=== PATIENT | female | born 1940 | race Caucasian/White ===

== ENCOUNTER 2016-06-13 09:36 | Inpatient (IN) | payer MEDICARE, BC ==
[~2016-06-13] VITALS: Ht 160 cm; Wt 83.2 kg
[2016-06-13] MEDS ORDERED: COQ1100C PO (10:27)
[2016-06-13] MEDS ORDERED: CHOL5000 PO (10:27)
[2016-06-13] MEDS ORDERED: VITA500T4 PO (10:27)
[2016-06-13] MEDS ORDERED: BIOT50005 PO (10:27)
[2016-06-13] MEDS ORDERED: TURM500C PO (10:27)
[2016-06-13] MEDS ORDERED: GLUC100017 PO (10:27)
[2016-06-13] MEDS ORDERED: FOLI800T PO (10:27)
[2016-06-13] MEDS ORDERED: NEXI20CA PO (10:29)
--- NOTE | 2016-06-15 19:22 | MH ---
cc: DOLLY ALAVRADO MD DATE OF ADMISSION: 06/21/2016 ADMITTING DIAGNOSIS Severe osteoarthritis of the left hip, pain left hip. HISTORY The patient is a 75-year-old white female who has experienced pain of her left hip of at least two years duration. She had noted the gradual onset of her discomfort unrelated to injury or unusual activity. She had undergone previous evaluation in [place] where she was diagnosed as having an arthritic condition and conformed to conservative management thereafter which included use of antiinflammatory medication and conforming to an exercise regimen. With the passage of time, the patient became progressively more symptomatic with pain for which she underwent additional orthopedic evaluation in both [place] and [facility] where she was encouraged to consider operative intervention. The patient indicated her desire to return to the [place] for further disposition for which she was later seen by the undersigned physician in May of this year. At that time she reported ongoing pain about her left groin area that had been aggravated by extended weightbearing activity that limited the patient's mobility with regards to her daily routine. She had continued to utilize antiinflammatory medication in the form of Advil without significant benefit being noted. Her x-ray studies revealed severe degenerative changes with subtotal obliteration of the joint space and early deformation of the femoral head. Findings and treatment options were reviewed with the patient at that time. The pros and cons of further conservative management versus operative intervention involving total hip arthroplasty were outlined in detail. Emphasis was made regarding the fact that the decision to proceed with surgery would be left entirely to the patient's discretion. The patient advised the undersigned that the entire purpose of returning to the [facility] was with the intent to proceed with surgical treatment as recommended. In compliance with her wishes, she is currently being admitted in order that total hip replacement be accomplished. PAST MEDICAL HISTORY/HOSPITALIZATIONS/SURGERIES 1. Hemiarthroplasty of the left shoulder for a history of degenerative joint disease. 2. Tonsillectomy. 3. Bilateral cataract surgery with intraocular lens implants. 4. Bilateral reduction mammoplasty. MEDICAL ILLNESSES Elevated cholesterol although is currently being managed without any medication. CURRENT MEDICATIONS Various supplements including B12, D3, folic acid, Q10, biotin, tumeric, glucosamine, Advil and Nexium is taken on a p.r.n. basis for a history of hiatal hernia. ALLERGIES THE PATIENT DENIES ANY KNOWN DRUG ALLERGIES. REVIEW OF SYSTEMS She experiences occasional headache. No seizure or syncope. No sinus congestion or epistaxis. Auditory acuity intact. No tinnitus. No bleeding gums or dysphagia. No cough, shortness of breath, upper respiratory infection, pneumonia or tuberculosis. No angina or heart disease. Appetite good. Bowel movements regular. No hepatitis, gallbladder disease, ulcers or hemorrhoids. No urinary tract infection. No kidney stones. She has had a prior history of a left humerus fracture. No psychiatric illness. Her remaining review of systems is unremarkable and noncontributory. FAMILY HISTORY The patient has been 55 years. Her is 83 years of age and described as being in good health. She has two sons also described as being in a good health. Her family history is unremarkable for hypertension, tuberculosis, diabetes, carcinoma, heart, liver or kidney disease. SOCIAL HISTORY The patient completed a high school education. She is a housewife. She denies active use of tobacco. Ethanol consumption in the form of an occasional glass of wine. PHYSICAL EXAMINATION Height 5 feet 2 inches, weight 189 pounds. GENERAL: An alert, oriented and responsive 75-year-old Greek female who sits quietly upon the examination table with no apparent distress. HEAD, EARS, EYES, NOSE AND THROAT: Pupils are equally round and reactive to light. Extraocular movements full. Sclerae are clear. External nares clear. External auditory canals clear. Dental intact. Mucous membranes pink and moist. Pharynx clear. NECK: Supple. Active range of motion without significant pain. Carotid pulse palpable bilaterally. Trachea midline. Thyroid without enlargement. LUNGS: Clear to auscultation and percussion. No CVA tenderness. No discomfort throughout the dorsal lumbar spine. HEART: Regular rhythm. No murmur or gallop. ABDOMEN: Soft, nontender. Bowel sounds present. PELVIC: Deferred. EXTREMITIES: Left hip: No localizing tenderness to palpation. There is restricted mobility of the hip joint being most pronounced with internal rotation and abduction maneuvering and pain at the extreme of motion. No sensation of crepitation or instability. Straight-leg raising is negative at 80 degrees bilaterally. Bradley sign is positive on the left side. Distal sensory grossly intact. Antalgic gait. NEUROLOGIC: Cranial nerves II through XII grossly intact. IMPRESSION Severe osteoarthritis of the left hip, pain left hip. PLAN Left total hip arthroplasty. The nature of the planned surgical procedure, the potential complications and risks associated, the expectations of surgery and the consent form were thoroughly reviewed with the patient prior to her admission to the hospital. Apple has indicated her full understanding regarding all of the above and given consent to proceed with treatment as outlined. Cardiac evaluation and clearance for surgery completed per Dr. Jorge Kim. MD SHADY Garcia/BJSawyer /6:32 PM /6:51 PM
[2016-06-21] MEDS ORDERED: ceFAZolin 2 GM PREMIX 50 ML IV SCH (09:45)
[2016-06-21] MEDS ORDERED: INSULIN HUMAN REGULAR 1,000 UNITS/10 ML VIAL SQ PRN (09:45)
[2016-06-21] MEDS ORDERED: METOPROLOL TARTRATE 25 MG TAB PO PRN (09:45)
[2016-06-21] MEDS ORDERED: SODIUM CHLORID 0.9% 500 ML IV SCH (10:00)
[2016-06-21] MEDS ORDERED: LACTATED RINGER'S 1000 ML IV SCH (10:00)
[2016-06-21] MEDS ORDERED: DIPH1TAB36 PO (10:03)
[2016-06-21] MEDS ORDERED: ADVI200C5 PO (10:03)
[2016-06-21 10:09] VITALS: BP 134/73; PULSE 74; RESP 18; TEMP 98.1; O2SAT 96
[2016-06-21] MEDS: TRANEXAMIC ACID 1 GM PRIOR TO PROCEDURE IV SCH ×2 (11:00)
[2016-06-21] MEDS ORDERED: ONDANSETRON HCL 4 MG/2 ML VIAL IV PUSH ONE (12:00)
[2016-06-21] MEDS ORDERED: ePHEDrine/NS 25 MG/5 ML SYR IV ONE (12:00)
[2016-06-21] MEDS ORDERED: NEOSTIGMINE 3 MG/3 ML SYR IV ONE (12:00)
[2016-06-21] MEDS ORDERED: LACTATED RINGER'S 1000 ML INJ 1,000 ML IV ONE (12:00)
[2016-06-21] MEDS ORDERED: PROPOFOL 200 MG/20 ML AMP IV ONE (12:00)
[2016-06-21] MEDS ORDERED: ACETAMINOPHEN 1000 MG/100 ML VIAL IV ONE (12:12)
[2016-06-21] MEDS ORDERED: FAMOTIDINE 20 MG/2 ML VIAL ONE (12:12)
[2016-06-21] MEDS ORDERED: MIDAZOLAM HCL 2 MG/2 ML VIAL ONE (12:12)
[2016-06-21] MEDS ORDERED: fentaNYL CITRATE 250 MCG/5 ML AMP ONE (12:12)
[2016-06-21] MEDS ORDERED: DEXAMETHASONE SOD PHOS 4 MG/ML VIAL ONE (12:13)
[2016-06-21] MEDS ORDERED: TRANEXAMIC ACID INJ 1,000 MG/10 ML AMP IV ONE (12:47)
[2016-06-21] MEDS ORDERED: TRANEXAMIC ACID INJ 1,000 MG in SODIUM CHLORIDE 0.9% INJ 100 ML IV SCH (15:00)
[2016-06-21] MEDS ORDERED: MORPHINE SULFATE 30 MG/30 ML PCA IV SCH (15:00)
[2016-06-21] MEDS ORDERED: MAGNESIUM HYDROXIDE SUSP 30 ML CUP PO PRN (15:00)
[2016-06-21] MEDS ORDERED: Post-op Orders (for Pharmacy) MISC XX ONE (15:00)
[2016-06-21] MEDS ORDERED: ACETAMINOPHEN/HYDROcodone 325 MG/5 MG TAB PO PRN (15:00)
[2016-06-21] MEDS ORDERED: ONDANSETRON HCL 4 MG/2 ML VIAL IVP PRN (15:00)
[2016-06-21] MEDS ORDERED: BISACODYL 10 MG SUPP PR PRN (15:00)
[2016-06-21] MEDS ORDERED: diphenhydrAMINE HCL 25 MG CAP PO PRN (15:00)
[2016-06-21] MEDS ORDERED: MISCELLANEOUS PHARMACY INFORMATION XX ONE (15:00)
[2016-06-21] MEDS ORDERED: DOCUSATE SODIUM 100 MG CAP PO PRN (15:00)
[2016-06-21] MEDS ORDERED: NALOXONE HCL 0.4 MG/ML AMP IV PRN (15:00)
[2016-06-21] MEDS ORDERED: SODIUM CHLORIDE 0.9% FLUSH 5 ML FLUSH IVF PRN (15:00)
[2016-06-21] MEDS: TRANEXAMIC ACID 1 GM POST-OP IV SCH ×2 (15:30)
[2016-06-21] MEDS: DEXT 5%-NACL 0.45% 1000 ML INJ 1,000 ML IV SCH ×2 (15:30→22:20)
[2016-06-21] MEDS: POVIDONE IODINE 7.5% SCRUB 118 ML BOTTLE TOP SCH (15:45)
--- NOTE | 2016-06-21 16:02 | RADRPT ---
EXAM DATE/TIME: 06/21/2016 15:11 [facility] COMPARISON: No previous studies available for comparison. INDICATIONS : Post op left hip. MEDICAL HISTORY : None. SURGICAL HISTORY : None. ENCOUNTER: Initial ACUITY: 1 day PAIN SCORE: Non-responsive. LOCATION: Left hip FINDINGS: Patient is immediately status post left total hip arthroplasty. Single view obtained. I can see one s uperiorly directed screw fixating the acetabulum and its tip protrudes approximately 15 mm. No fractu re is demonstrated. CONCLUSION: Left total hip arthroplasty as above. Cruz Santos MD on June 21, 2016 at 15:58 Board Certified Radiologist. This report was verified electronically.
[2016-06-21] MEDS ORDERED: TETRACAINE 0.5% OPTH SOLN 4 ML BTL LEFT EYE ONE (18:30)
[2016-06-21] MEDS ORDERED: PANTOPRAZOLE SOD 20 MG DELAYED RELEASE TAB PO PRN (18:30)
[2016-06-21] MEDS ORDERED: PILL SPLITTER OTHER PRN (18:30)
[2016-06-21] MEDS ORDERED: BALANCED SALT SOLN OPHT IRRIG 15 ML BTL ONE (18:30)
[2016-06-21 18:47] VITALS: O2SAT 94
[2016-06-21 20:11] VITALS: BP 117/72; PULSE 96; RESP 17; TEMP 96.7; O2SAT 100
[2016-06-21] MEDS ORDERED: ZOLPIDEM TARTRATE 5 MG TAB PO PRN (21:00)
[2016-06-21] MEDS: SODIUM CHLORIDE 0.9% FLUSH 5 ML FLUSH IVF SCH (21:00)
[2016-06-21] MEDS: PCA - TOTAL MG MORPHINE DELIVERED PER SHIFT SCH (22:00)
[2016-06-21] MEDS: ACETAMINOPHEN 325 MG TAB PO PRN (22:39)
[2016-06-21] MEDS ORDERED: MENTHOL LOZENGE BUCCAL PRN (22:45)
[2016-06-22] VITALS (11 sets, daily range): BP systolic 84–122; BP diastolic 46–68; PULSE 70–95; RESP 16–20; TEMP 96–99.8; O2SAT 92–100
[2016-06-22 05:25] LABS: HEMATOCRIT 27.9 % (35.0-46.0)
[2016-06-22 05:28] LABS: REVIEW FLAG FINAL
[2016-06-22] MEDS: PCA - TOTAL MG MORPHINE DELIVERED PER SHIFT SCH ×3 (05:50→20:17)
[2016-06-22] MEDS ORDERED: ASPI325T PO (06:32)
[2016-06-22] MEDS ORDERED: HYDR-3516 PO (06:32)
--- NOTE | 2016-06-22 06:34 | HHI.FF ---
Face to Face Verification Diagnosis: (1) Degenerative joint disease (DJD) of hip Physical Therapy Gait training Hip: Total hip, Protocol: Left, Abduction pillow while in bed Left LE Weight Bearing: WB as tolerated Left LE Range of Motion: Active ROM Nursing Dressing Changes: Daily dressing change I have seen patient Apple Reyna on 06/22/16. My clinical findings support the need for the requested home health care services because: Limited ability to care for self High risk of falls I certify that my clinical findings support that this patient is homebound because: Post-op weakness Unsteady gait/balance Unsafe to leave home unassisted Lawrence Dorantes MD Jun 22, 2016 06:34
[2016-06-22] MEDS ORDERED: MISC-163 ×2 (06:38→06:44)
[2016-06-22] MEDS ORDERED: WALKER WHEELS/F1 MIS (06:38)
[2016-06-22] MEDS: DEXT 5%-NACL 0.45% 1000 ML INJ 1,000 ML IV SCH ×3 (06:58→22:58)
[2016-06-22] MEDS: POVIDONE IODINE 7.5% SCRUB 118 ML BOTTLE TOP SCH (07:57)
[2016-06-22] MEDS: SODIUM CHLORIDE 0.9% FLUSH 5 ML FLUSH IVF SCH ×2 (09:00→20:17)
[2016-06-22] MEDS: CHOLECALCIFEROL (VIT D3) 5000 UNIT CAP PO SCH (09:22)
[2016-06-22] MEDS: CYANOCOBALAMIN 1,000 MCG TAB PO SCH (09:22)
[2016-06-22] MEDS: TRANEXAMIC ACID 1 GM PRIOR TO PROCEDURE IV SCH ×2 (09:23)
[2016-06-22] MEDS: TRANEXAMIC ACID 1 GM POST-OP IV SCH ×2 (13:27)
--- NOTE | 2016-06-22 13:39 | MP ---
cc: WENDY LY III, M.D. DATE OF OPERATION June 21, 2016 PREOPERATIVE DIAGNOSIS Severe osteoarthritis of the left hip. Pain of the left hip. POSTOPERATIVE DIAGNOSIS Severe osteoarthritis of the left hip. Pain of the left hip. PROCEDURE Left total hip arthroplasty. SURGEON MD Jayna ANESTHESIA Endotracheal. INDICATIONS A 75-year-old white female who has experienced pain of her left hip of two years duration. She had noted the gradual onset of discomfort unrelated to injury or unusual activity. She had undergone previous evaluation in her [place] of [place] where she was diagnosed as having an arthritic condition and thereafter conformed to conservative management which included use of anti-inflammatory medication and an exercise regimen. With the passage of time she became progressively more symptomatic with pain for which she underwent additional orthopedic evaluation in both [place] and [facility] where she was encouraged to consider operative intervention. She indicated her desire to return to the [place] for further disposition for which she was later seen by the undersigned physician in May of this year. At that time she reported ongoing pain about her left groin area that had been aggravated by extended weightbearing activity and limited her mobility with regards to her daily routine. She continued to utilize anti-inflammatory medication in the form of Advil without significant benefit noted. Her x-ray studies revealed severe degenerative changes with subtotal obliteration of the joint space and early deformation of the femoral head. Findings and treatment options were reviewed with the patient at that time. The pros and cons of continuing with conservative management versus operative intervention involving total hip arthroplasty were outlined in detail. Emphasis was made regarding the fact that the decision to proceed with surgery would be left entirely to the patient's discretion. The patient reported that her intent of returning to the [place] was with the plan to proceed with surgical treatment as had previously been recommended. In compliance with her wishes, she is currently being admitted in order that total hip replacement be accomplished. FORMAT Following induction of satisfactory general anesthesia by endotracheal intubation as completed per the Department of Anesthesia, the patient was positioned upon the operating table in a right lateral decubitus fashion. The left hip and lower extremity proper were isolated with a U drape thereafter being prepped with Betadine solution and draped into a sterile field in the routine manner. Prior to initiation of the actual procedure the standard time-out protocol was completed. All parameters were appropriately addressed and confirmed by operating room personnel. A standard posterolateral approach to the hip was initiated through a sharp skin incision and developed through underlying subcutaneous tissue with hemostasis maintained by electrocautery. By deepening dissection the fascia overlying the gluteus musculature was exposed and thereafter sharply incised to the limits of the incision. The underlying gluteus fibers were divided with the Bovie on cutting current. Progressive dissection facilitated exposure of the short external rotator structures. The piriformis tendon was utilized as an anatomical landmark and division of these structures was completed in a superior to inferior orientation and reflected medially exposing the posterior capsule. The sciatic nerve was protected. An L-shaped capsulotomy was accomplished through which a posterior dislocation of the femoral head was completed. Examination revealed severe degenerative changes with significant erosion of articular cartilage, hypertrophic bony reaction and deformation of the femoral head. The femoral template was positioned for alignment orientation. The neck was scored and thereafter divided with power saw, the amputated segment being passed to the back table as surgical specimen. Attention was initially directed to the proximal femur. Cancellus bone was harvested. The tapered reamer was inserted for alignment orientation. Sequential rasping and broaching was accomplished from 7 through 8 mm with the calcar orlando being utilized at the 8-mm stage. The 8-mm stem was determined to be favorable. With the trial component removed, attention was redirected to the acetabulum. The labrum and reactive soft tissue were sharply excised. Progressive reaming was accomplished from 46 through 53-mm. The 54 trial shell was positioned and determined to be satisfactory. With trial components being removed, the wound was copiously irrigated with pulsating antibiotic solution, hemostasis being maintained by electrocautery. Thereafter a 54-mm RingLoc acetabular shell was firmly seated into the acetabulum in approximately 45 degrees inclination to the horizontal and slight anteversion. A single 25-mm 6.5 cancellous screw was inserted superiorly to augment fixation. The permanent high wall acetabular liner was affixed to the acetabular shell. The 8-mm trial femoral broach was repositioned and a trial reduction followed utilizing a 36-mm modular head with both -6 and -3 neck length adapters. The -3 sizing was determined to be the more favorable fit. The hip was flexed to 90 degrees and internally rotated to 45 degrees with stability maintained. An open dislocation completed, the trial femoral components being removed, the canal was thoroughly irrigated and dried and thereafter the size 8 Echo Bi-Metric standard femoral stem was firmly seated to which a 36-mm ceramic head with -3 mm neck length adapter attached, open reduction completed and repeat range of motion again noted stability as previously described. Final irrigation was accomplished with hemostasis maintained. The posterior capsule was repaired with 0 Vicryl suture. The piriformis tendon and short external rotators structures were reapproximated in a similar manner. Hemovac drain tubes were inserted through superior stab wounds. The fascia of the gluteus musculature was reapproximated with a running 0 Vicryl suture. The remaining portion of the wound was closed in layers in the routine manner, skin margins being reapproximated with a running subcuticular 3-0 Vicryl suture over which Steri-Strips were applied. Xeroform gauze and a bulky dry sterile dressing were placed. The patient was repositioned into a supine orientation where an abduction splint was attached. Anesthesia was discontinued and she was thereafter transferred to a hospital bed and returned to the recovery room in satisfactory condition having tolerated her operative procedure well. Estimated blood loss was approximately 300 cc as determined per Anesthesia. All implants were of the Biomet simplex printer installer. MD SHADY Garcia/SSB /2:52 PM /1:21 PM
[2016-06-22] MEDS: RIVAROXABAN 10 MG TAB PO SCH (13:59)
[2016-06-22] MEDS ORDERED: PANTOPRAZOLE SOD 40 MG DELAYED RELEASE TAB PO ONE (15:45)
--- NOTE | 2016-06-22 19:23 | PD.CONS ---
[facility] Requested By Primary Care Physician No Primary Care Physician Diagnoses: History of Present Illness Patient is a pleasant 75-year-old female with a history of osteoarthritis, hiatal hernia, hypoglycemic headaches who is currently postop day 1 left hip replacement for osteoarthritis. She reports that pain is controlled. She denies any nausea, vomiting. She denies any heartburn. Denies any chest pain or shortness of breath. She reports feeling well prior to the procedure. Discussed with nursing. Patient had been noted to have blood pressures as low as 84/46 today. She did have some lightheadedness, but this has improved. Review of Systems performed and negative except for HPI and past medical history. Past Family Social History Allergies: Coded Allergies: No Known Allergies (Verified , 06/21/16) Past Medical History Hiatal hernia. Patient takes Nexium as needed for this. Long history of headaches with hypoglycemia from not eating. Patient has a history of elevated cholesterol managed with diet. Osteoarthritis B12 deficiency Vitamin D deficiency Past Surgical History Hemiarthroplasty of the left shoulder Tonsillectomy Bilateral cataract surgery Bilateral breast reduction Reported Medications patient takes Nexium 20 mg daily as needed patient also takes many multivitamins. Active Ordered Medications Current Medications Medications (Trade) Dose Ordered Sig/Nevin Route Start Time Stop Time Status Last Admin Povidone Iodine 1 applic 1 applic ONCE TOP 06/21/16 09:45 06/24/16 09:44 06/21/16 15:45 Tranexamic Acid 1000 mg/Sodium Chloride 110 ml @ 220 mls/hr ONCE IV 06/21/16 14:00 06/22/16 20:00 06/21/16 15:30 (D5W-1/2 NS 1000 ml Inj) 1,000 ml @ 125 mls/hr Q8H IV 06/21/16 14:58 06/22/16 15:03 (NS Flush) 2 ml UNSCH PRN IVF 06/21/16 15:00 (NS Flush) 2 ml BID IVF 06/21/16 21:00 (Xarelto) 10 mg Q24H PO 06/22/16 14:00 06/22/16 13:59 ([place] 5-325 Mg) 1 tab Q4H PRN PO 06/21/16 15:00 ([place] 5-325 Mg) 2 tab Q4H PRN PO 06/21/16 15:00 (Tylenol) 650 mg Q6H PRN PO 06/21/16 15:00 06/21/16 22:39 (Zofran Inj) 4 mg Q6H PRN IVP 06/21/16 15:00 (Colace) 100 mg BID PRN PO 06/21/16 15:00 (Ambien) 5 mg HS PRN PO 06/21/16 21:00 (Dulcolax Supp) 10 mg DAILY PRN OR 06/21/16 15:00 (Milk Of Magnesia Liq) 30 ml DAILY PRN PO 06/21/16 15:00 (Narcan Inj) 0.4 mg UNSCH PRN IV 06/21/16 15:00 06/23/16 14:59 (Benadryl) 25 mg Q6H PRN PO 06/21/16 15:00 06/23/16 14:59 (Morphine 1 Mg/ ml SCIENTIFIC [employer]ORATORY SUPERVISOR) 30 mg UNSCH IV 06/21/16 15:00 06/23/16 14:59 06/21/16 17:30 SCIENTIFIC [employer]ORATORY SUPERVISOR Dosage Infused (Pha) 1 Q8HR .XX 06/21/16 22:00 06/23/16 21:59 06/22/16 13:18 (Vitamin D3) 5,000 units DAILY PO 06/22/16 09:00 06/22/16 09:22 (Vitamin B12) 500 mcg DAILY PO 06/22/16 09:00 06/22/16 09:22 (Pill Splitter) 1 ea UNSCH PRN OTHER 06/21/16 18:30 ([place] Guillermina) 1 lozenge Q2H PRN BUCCAL 06/21/16 22:45 06/21/16 23:16 (Protonix) 40 mg DAILY PO 06/23/16 09:00 Family History Parents from old age. Has 2 sons in good health. Social History Nonsmoker. Patient drinks a glass of wine occasionally. Denies any illicit drugs. Physical Exam Vital Signs Vital Signs Date Time Temp Pulse Resp B/P Pulse Ox O2 Delivery O2 Flow Rate FiO2 06/22/16 13:18 18 06/22/16 12:04 97.4 70 16 122/50 96 06/22/16 11:18 107/48 06/22/16 11:10 84/46 06/22/16 10:15 105/52 06/22/16 10:02 94 21 06/22/16 08:10 96.6 84 18 97 06/22/16 04:11 96.4 88 19 106/68 95 06/22/16 00:15 96.0 95 20 112/67 100 06/21/16 20:11 96.7 96 17 117/72 100 Physical Exam GENERAL: patient lying in bed. Appears comfortable. Alert and oriented 3. SKIN: Warm and dry. HEAD: Normocephalic. EYES: No scleral icterus. No injection or drainage. NECK: Supple, trachea midline. No JVD or lymphadenopathy. CARDIOVASCULAR: Regular rate and rhythm without murmurs, gallops, or rubs. RESPIRATORY: Breath sounds equal bilaterally. No accessory muscle use. GASTROINTESTINAL: Abdomen soft, non-tender, nondistended. MUSCULOSKELETAL: No cyanosis, or edema. patient able to wiggle toes.bilateral upper extremity strength equal and intact BACK: Nontender without obvious deformity. No CVA tenderness. Laboratory Laboratory Tests Test 06/22/16 04:56 Hemoglobin 9.3 Hematocrit 27.9 Result Diagram: 06/22/16 0456 Assessment and Plan Assessment and Plan //Postoperative left hip performed on 06/21 Postsurgical management as per surgical service Pain management as per surgical service Await return of bowel function //Hypotension -Likely secondary to opioids. Patient is opioid rosita. Avoid high doses of opioids. Continue to monitor blood pressure. 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 Chronic. -Patient will continue on D5 half-normal saline. Avoid fasting if possible in the hospital //GERD. Chronic. //History of hiatal hernia. Chronic. -We'll place on PPI while in the hospital. //B12 deficiency, vitamin D deficiency. We'll continue supplementation. //Prophylaxis. As per surgical service. Discussed Condition With patient, nurse. Gregorio Brennan MD Jun 22, 2016 19:23
[2016-06-22] MEDS: ACETAMINOPHEN 325 MG TAB PO PRN (20:17)
[2016-06-23] VITALS (9 sets, daily range): BP systolic 96–109; BP diastolic 52–68; PULSE 83–91; RESP 16–21; TEMP 96.4–100.1; O2SAT 92–95
[2016-06-23] MEDS: PCA - TOTAL MG MORPHINE DELIVERED PER SHIFT SCH ×3 (06:00→21:48)
[2016-06-23] MEDS: PANTOPRAZOLE SOD 40 MG DELAYED RELEASE TAB PO SCH (08:56)
[2016-06-23] MEDS: SODIUM CHLORIDE 0.9% FLUSH 5 ML FLUSH IVF SCH ×2 (08:56→20:12)
[2016-06-23] MEDS: CHOLECALCIFEROL (VIT D3) 5000 UNIT CAP PO SCH (08:56)
[2016-06-23] MEDS: CYANOCOBALAMIN 1,000 MCG TAB PO SCH (08:56)
[2016-06-23] MEDS: POVIDONE IODINE 7.5% SCRUB 118 ML BOTTLE TOP SCH (08:57)
[2016-06-23] MEDS: DEXT 5%-NACL 0.45% 1000 ML INJ 1,000 ML IV SCH ×2 (08:57→14:10)
[2016-06-23] MEDS: ACETAMINOPHEN 325 MG TAB PO PRN ×3 (09:06→21:52)
[2016-06-23] MEDS ORDERED: DOCUSATE SODIUM 50 MG/SENNA 8.6 MG TAB PO ONE (09:30)
[2016-06-23] MEDS ORDERED: MAGNESIUM HYDROXIDE SUSP 30 ML CUP PO ONE (09:30)
[2016-06-23] MEDS: RIVAROXABAN 10 MG TAB PO SCH (14:09)
--- NOTE | 2016-06-23 22:53 | HHI.PR ---
Subjective Remarks pt says she is feeling alright. no cp or sob. poor appetite. Objective Vital Signs Date Time Temp Pulse Resp B/P Pulse Ox O2 Delivery O2 Flow Rate FiO2 06/23/16 21:48 18 06/23/16 18:11 95 21 06/23/16 16:00 99.5 85 16 107/68 95 06/23/16 12:42 17 06/23/16 12:00 100.1 86 16 104/64 92 06/23/16 10:14 98/62 06/23/16 09:44 96/58 06/23/16 08:00 21 06/23/16 08:00 100.0 91 17 109/65 93 06/23/16 06:00 19 06/23/16 04:13 96.4 85 21 101/52 95 06/23/16 00:09 96.8 89 20 103/56 92 I/O 06/22/16 06/22/16 06/22/16 06/23/16 06/23/16 06/23/16 07:00 15:00 23:00 07:00 15:00 23:00 Intake Total 647 ml 1369 ml 240 ml 240 ml 2151 ml Output Total 10 ml 40 ml 25 ml 700 ml Balance 637 ml 1329 ml 215 ml 240 ml 1451 ml Intake Oral 240 ml 860 ml 240 ml 240 ml 720 ml IV Total 407 ml 509 ml 1431 ml Output Urine Total 700 ml Drainage Total 10 ml 40 ml 25 ml # Voids 1 3 2 1 1 # Bowel Movements 0 0 0 0 Result Diagram: 06/22/16 0456 Objective Remarks GENERAL: sitting up in bed. aaox3. appears comfortable. SKIN: Warm and dry. HEAD: Normocephalic. EYES: No scleral icterus. No injection or drainage. NECK: Supple, trachea midline. No JVD. CARDIOVASCULAR: Regular rate and rhythm without murmurs, gallops, or rubs. RESPIRATORY: Breath sounds equal bilaterally. No accessory muscle use. GASTROINTESTINAL: Abdomen soft, non-tender, nondistended. MUSCULOSKELETAL: No cyanosis, or edema. BACK: Nontender without obvious deformity. No CVA tenderness. A/P Assessment and Plan //Postoperative left hip performed on 06/21 Postsurgical management as per surgical service Pain management as per surgical service Await return of bowel function. cathartic ordered //Low-grade fever. no sign of infection. monitor. //Hypotension -Likely secondary to opioids. Patient is opioid rosita. Avoid high doses of opioids. Continue to monitor blood pressure. 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 Chronic. -Patient will continue on D5 half-normal saline. Avoid fasting if possible in the hospital //GERD. Chronic. //History of hiatal hernia. Chronic. -cont on PPI while in the hospital. //B12 deficiency, vitamin D deficiency. continue supplementation. //Prophylaxis. As per surgical service. Discharge Planning per surgical service. Gregorio Brennan MD Jun 23, 2016 22:53
[2016-06-24] VITALS (7 sets, daily range): BP systolic 93–115; BP diastolic 51–69; PULSE 73–85; RESP 18–19; TEMP 98–99.9; O2SAT 94–99
[2016-06-24 05:37] LABS: AUTOMATED NEUTROPHIL # 3.8 TH/MM3 (1.8-7.7); BASOPHIL % 0.4 % (0.0-2.0); EOSINOPHIL # 0.1 TH/MM3 (0-0.4); EOSINOPHIL % 1.2 % (0.0-4.0); HEMO FLAGS DIFF FINAL; LYMPH % 27.8 % (9.0-44.0); LYMPHOCYTE # 1.9 TH/MM3 (1.0-4.8); MEAN CELL VOLUME 91.8 FL (80.0-100.0); MEAN CORPUSCULAR HGB CONC 34.9 % (32.0-36.0); MONO % 14.3 % (0.0-8.0); NEUT % 56.3 % (16.0-70.0); PLATELET COUNT 264 TH/MM3 (150-450); RED CELL DISTRIBUTION WIDTH 14.7 % (11.6-17.2); WHITE BLOOD COUNT 6.8 TH/MM3 (4.0-11.0)
[2016-06-24 05:51] LABS: BICARBONATE 29.9 MEQ/L (21.0-32.0); POTASSIUM 3.9 MEQ/L (3.5-5.1)
[2016-06-24] MEDS: ACETAMINOPHEN/HYDROcodone 325 MG/5 MG TAB PO PRN (09:30)
[2016-06-24] MEDS: PANTOPRAZOLE SOD 40 MG DELAYED RELEASE TAB PO SCH (09:31)
[2016-06-24] MEDS: CHOLECALCIFEROL (VIT D3) 5000 UNIT CAP PO SCH (09:31)
[2016-06-24] MEDS: CYANOCOBALAMIN 1,000 MCG TAB PO SCH (09:31)
[2016-06-24] MEDS: SODIUM CHLORIDE 0.9% FLUSH 5 ML FLUSH IVF SCH ×2 (09:32→20:31)
--- NOTE | 2016-06-24 10:23 | HHI.PR ---
Subjective Remarks Patient seen and examined this am. No overnight events. No BM since Sun, states milk of mag doesnt work for her and is requesting 2 ducolax suppositories. She is afebrile and vitals are stable. She is denying CP or difficulty breathing. (Marie Zapata MD R3) Objective Vital Signs Date Time Temp Pulse Resp B/P Pulse Ox O2 Delivery O2 Flow Rate FiO2 06/24/16 10:06 95 21 06/24/16 08:00 99.1 76 18 102/58 94 06/24/16 04:00 98.0 73 18 102/60 99 06/24/16 00:00 98.0 85 18 107/63 97 06/23/16 22:52 18 06/23/16 21:48 18 06/23/16 20:00 98.8 83 20 97/58 92 06/23/16 18:11 95 21 06/23/16 16:00 99.5 85 16 107/68 95 06/23/16 12:42 17 06/23/16 12:00 100.1 86 16 104/64 92 06/23/16 10:14 98/62 I/O 06/23/16 06/23/16 06/23/16 06/24/16 06/24/16 06/24/16 07:00 15:00 23:00 07:00 15:00 23:00 Intake Total 240 ml 2151 ml 200 ml Output Total 700 ml Balance 240 ml 1451 ml 200 ml Intake Oral 240 ml 720 ml 200 ml IV Total 1431 ml Output Urine Total 700 ml # Voids 1 1 1 2 # Bowel Movements 0 (Marie Zapata MD R3) Result Diagram: 06/24/16 0411 06/24/16 0411 Imaging Last Impressions Hip X-Ray 06/21/16 1458 Signed Impressions: Service Date/Time: Tuesday, June 21, 2016 15:11 - CONCLUSION: Left total hip arthroplasty as above. Cruz Santos MD Other Results GENERAL: appears comfortable SKIN: Warm and dry. HEAD: Normocephalic. EYES: No scleral icterus. No injection or drainage. NECK: Supple, trachea midline. No JVD or lymphadenopathy. CARDIOVASCULAR: Regular rate and rhythm without murmurs, gallops, or rubs. RESPIRATORY: Breath sounds equal bilaterally. No accessory muscle use. GASTROINTESTINAL: Abdomen soft, non-tender, nondistended. MUSCULOSKELETAL: No cyanosis, or edema. No calf tenderness. (Marie Zapata MD R3) A/P Problem List: (1) Degenerative joint disease (DJD) of hip ICD Code: M16.9 (2) Arthropathy of left hip ICD Code: M12.9 Assessment and Plan 75-year-old female with no significant medical history presented to the [place] ED with left hip pain found to have severe left osteoarthritis. She is status post left total hip arthroplasty. Hospitalist team consulted for medical management. 1 Postoperative left hip performed on 06/21 Postsurgical management as per surgical service Pain management as per surgical service Await return of bowel function. - PT recommends SNF, placement pending - ducolax suppos added - xarelto dvt prop 2. Hypotension -Likely secondary to opioids. Patient is opioid rosita. Avoid high doses of opioids. Continue to monitor blood pressure. 3. Headaches secondary to hypoglycemia from not eating. Chronic. -Patient will continue on D5 half-normal saline. Avoid fasting if possible in the hospital 4. GERD, with history of hiatal hernia. Chronic. -cont on PPI while in the hospital. 5. B12 deficiency, vitamin D deficiency. continue supplementation. Discharge Planning Patient cleared for D/C to SN[facility] pending BM. (Marie Zapata MD R3) Marie Zapata MD R3 Jun 24, 2016 10:23 Sivan Rocha MD Jun 24, 2016 15:50
[2016-06-24] MEDS ORDERED: BISACODYL EC 5 MG TABEC PO ONE (11:45)
[2016-06-24] MEDS ORDERED: BISACODYL 10 MG SUPP RECTAL ONE (12:00)
[2016-06-24] MEDS: RIVAROXABAN 10 MG TAB PO SCH (12:43)
[2016-06-24] MEDS: DEXT 5%-NACL 0.45% 1000 ML INJ 1,000 ML IV SCH (14:58)
[2016-06-24] MEDS ORDERED: XARE10TA PO (17:03)
[2016-06-24] MEDS ORDERED: SOD PHOSPHATE/SOD BIPHOSPHATE (ADULT) ENEMA 133ML PR ONE (18:00)
[2016-06-25 00:08] VITALS: BP 99/55; PULSE 89; RESP 18; TEMP 99.3; O2SAT 96
[2016-06-25 04:29] VITALS: BP 102/55; PULSE 85; RESP 18; TEMP 99.1; O2SAT 94
[2016-06-25 07:26] VITALS: BP 94/55; PULSE 83; RESP 17; TEMP 98; O2SAT 95
--- NOTE | 2016-06-25 07:59 | HHI.PR ---
Subjective Remarks Patient seen and examined this am. No overnight events. Multiple BM s. She is afebrile and vitals are stable. She is ready to go to rehab. Her pain is well controlled. States she walked around her room yesterday independently without issues. (Marie Zapata MD R3) Objective Vital Signs Date Time Temp Pulse Resp B/P Pulse Ox O2 Delivery O2 Flow Rate FiO2 06/25/16 04:29 99.1 85 18 102/55 94 06/25/16 00:08 99.3 89 18 99/55 96 06/24/16 20:05 99.9 84 19 109/52 95 06/24/16 16:00 99.0 84 18 115/69 98 06/24/16 12:00 98.1 74 18 93/51 99 06/24/16 10:06 95 21 06/24/16 08:00 99.1 76 18 102/58 94 I/O 06/24/16 06/24/16 06/24/16 06/25/16 06/25/16 06/25/16 07:00 15:00 23:00 07:00 15:00 23:00 Intake Total 960 ml 480 ml 240 ml Output Total 30 ml Balance 960 ml 480 ml 210 ml Intake Oral 960 ml 480 ml 240 ml Drainage Total 30 ml # Voids 2 2 1 0 # Bowel Movements 0 2 0 (Marie Zapata MD R3) Result Diagram: 06/24/16 0411 06/24/16 0411 Imaging Last Impressions Hip X-Ray 06/21/16 1458 Signed Impressions: Service Date/Time: Tuesday, June 21, 2016 15:11 - CONCLUSION: Left total hip arthroplasty as above. Cruz Santos MD Objective Remarks GENERAL: sitting comfortably in bed on her phone SKIN: Warm and dry. HEAD: Normocephalic. EYES: No scleral icterus. No injection or drainage. NECK: Supple, trachea midline. No JVD or lymphadenopathy. CARDIOVASCULAR: Regular rate and rhythm without murmurs, gallops, or rubs. RESPIRATORY: Breath sounds equal bilaterally. No accessory muscle use. GASTROINTESTINAL: Abdomen soft, non-tender, nondistended. MUSCULOSKELETAL: No cyanosis, or edema. No calf tenderness. (Marie Zapata MD R3) A/P Problem List: (1) Degenerative joint disease (DJD) of hip ICD Code: M16.9 (2) Arthropathy of left hip ICD Code: M12.9 Assessment and Plan 75-year-old female with no significant medical history presented to the [place] ED with left hip pain found to have severe left osteoarthritis. She is status post left total hip arthroplasty. Hospitalist team consulted for medical management. 1 Postoperative left hip performed on 06/21 Postsurgical management as per surgical service Pain management as per surgical service Bowel function returned - PT recommends SNF, placement pending - ducolax suppos added - xarelto dvt prop x 2 weeks 2. Hypotension -Likely secondary to opioids. Patient is opioid rosita. Avoid high doses of opioids. Continue to monitor blood pressure. 3. Headaches secondary to hypoglycemia from not eating. Chronic. 4. GERD, with history of hiatal hernia. Chronic. -cont on PPI while in the hospital. 5. B12 deficiency, vitamin D deficiency. continue supplementation. Discharge Planning Patient cleared for D/C to SNF. Orders written by primary. (Marie Zapata MD R3 ) Marie Zapata MD R3 Jun 25, 2016 07:59 Sivan Rocha MD Jun 26, 2016 14:37
[2016-06-25 08:20] VITALS: O2SAT 94
[2016-06-25] MEDS: CYANOCOBALAMIN 1,000 MCG TAB PO SCH (08:47)
[2016-06-25] MEDS: PANTOPRAZOLE SOD 40 MG DELAYED RELEASE TAB PO SCH (08:47)
[2016-06-25] MEDS: SODIUM CHLORIDE 0.9% FLUSH 5 ML FLUSH IVF SCH (08:48)
[2016-06-25] MEDS: CHOLECALCIFEROL (VIT D3) 5000 UNIT CAP PO SCH (08:48)
[2016-06-25] MEDS: ACETAMINOPHEN 325 MG TAB PO PRN (09:49)
[2016-06-25 11:41] VITALS: BP 115/61; PULSE 80; RESP 17; TEMP 97.5; O2SAT 96
[2016-06-25] MEDS: RIVAROXABAN 10 MG TAB PO SCH (13:53)
[2016-06-25] MEDS: ACETAMINOPHEN/HYDROcodone 325 MG/5 MG TAB PO PRN (13:53)
--- NOTE | 2016-06-30 06:02 | MD ---
cc: DOLLY DORANTES PEDRO ADMISSION DATE: 06/21/2016 DISCHARGE DATE: 06/25/2016 ADMISSION DIAGNOSIS Severe osteoarthritis of the left hip. Pain left hip. DISCHARGE DIAGNOSIS Severe osteoarthritis of the left hip. Pain left hip. HISTORY A 75-year-old white female with pain of her left hip of at least 2 years' duration. She had noted the gradual onset of her discomfort unrelated to injury or unusual activity. Previous evaluation had been [place] where she was diagnosed as having arthritic condition and thereafter conformed to conservative management which included the use of anti-inflammatory medication and an exercise regimen. With the passage of time she became progressively more symptomatic with pain and underwent additional orthopedic evaluation in both [place] and [facility] where she was encouraged to consider operative intervention. The patient indicated her desire to return to the [facility] for further disposition and later was seen by the undersigned physician in May of this year. At that time she reported ongoing pain about her left groin area that had been aggravated by extended weightbearing activity and limited her mobility throughout her daily routine. She had continued to utilize anti-inflammatory medication in the form of Advil without significant benefit being noted. Her x-ray studies revealed severe degenerative changes with subtotal obliteration of the joint space and early deformation of the femoral head. Findings and treatment options were reviewed with the patient at that time, the pros and cons of further conservative management versus operative intervention that would involve a total hip arthroplasty were outlined in detail. Emphasis made regarding the fact that the decision to proceed with surgery would be left entirely to the patient's discretion. The patient indicated that her whole purpose of having returned to the [facility] was with the intent to proceed with surgical intervention as discussed above and in compliance with her wishes she had currently been scheduled for admission in order that total hip replacement be completed. PHYSICAL EXAMINATION her physical examination at the time of admission revealed no localizing tenderness about her left hip. There was restricted mobility of the hip joint being most pronounced with internal rotation and abduction maneuvering and pain at the extreme of motion. No sensation of crepitation or instability. Straight-leg raising negative at 80 degrees bilaterally. Bradley's sign positive on the left side. Distal sensory grossly intact. Antalgic gait. HOSPITAL COURSE Prior to admission to the hospital the patient had undergone cardiac evaluation and clearance for surgery as completed by Dr. Jorge Kim. She was taken to the operating room on June 21, 2016, and on that date underwent a left total hip arthroplasty completed in an uncomplicated manner. The patient was noted to have tolerated her operative procedure well and her postoperative course was stable thereafter. She was progressively mobilized under the guidance of physical therapy, being permitted weightbearing to tolerance about the left lower extremity. Follow-up examination of her surgical wound noted to be intact, healing favorably, no evidence of infection. Medical followup per the hospitalist service, DVT prophylaxis initiated. [employer] consulted to assist with discharge planning. The patient had indicated her desire for temporary rehab placement. [employer] facilitated arrangements in this regard and pending medical clearance she was scheduled for transfer on the third postoperative day at which time she was noted to be making favorable progress with regards to her rehab program. FOLLOWUP She was scheduled to be seen in office followup in approximately four weeks. CONDITION ON DISCHARGE Her condition at the time of transfer was stable. Prognosis favorable DISCHARGE MEDICATIONS 1. Percocet 5 mg, #60. 2. Aspirin 325 mg one tablet twice daily for four weeks, #60. Dolly Dorantes MD NBS/SSB /11:09 AM /4:52 AM
== END 2016-06-25 14:05 | DRG 470 ==
LOC: HSDI 06-21 08:52 → N06A 06-21 18:10
PROVIDERS: ADMIT Orthopaedic Surgery; ATTEND Orthopaedic Surgery
PROC: 0SRB0JZ Replacement of Left Hip Joint with Synthetic Substitute, Open Approach (ICD-10-PCS; principal; 2016-06-21 12:28)
DX: M16.12 Unilateral primary osteoarthritis, left hip (principal); E53.8 Deficiency of other specified B group vitamins; E78.00 Pure hypercholesterolemia, unspecified; K21.9 Gastro-esophageal reflux disease without esophagitis; K44.9 Diaphragmatic hernia without obstruction or gangrene; E55.9 Vitamin D deficiency, unspecified; I95.2 Hypotension due to drugs; T40.2X5A Adverse effect of other opioids, initial encounter; Y92.239 Unspecified place in hospital as the place of occurrence of the external cause; E16.2 Hypoglycemia, unspecified
CPT/HCPCS: 73501; 80048; 85014; 85018; 85025; 86850; 86900; 86901; 88304; 88305; 88311; 94150; C1776; J0131; J0690; J1100; J2250; J2270; J2405; J2710; J3010; J7120

== ENCOUNTER → 2016-06-13 | Outpatient (CLI) | payer MEDICARE, BC ==
[~2016-06-13] MED LIST: ADVI200C5 PO; ASPI325T PO; ATOR20TA42 PO; BIOT50005 PO; CHOL5000 PO; COQ1100C PO; DIPH1TAB36 PO; FOLI800T PO; GLUC100017 PO; HYDR-3516 PO; MISC-163; NEXI20CA PO; TURM500C PO; VITA500T4 PO; WALKER WHEELS/F1 MIS; XARE10TA PO
[2016-06-13 10:17] LABS: AUTOMATED NEUTROPHIL # 2.7 TH/MM3 (1.8-7.7); BASOPHIL % 0.5 % (0.0-2.0); EOSINOPHIL # 0.1 TH/MM3 (0-0.4); EOSINOPHIL % 1.3 % (0.0-4.0); HEMATOCRIT 33.9 % (35.0-46.0); HEMO FLAGS DIFF FINAL; LYMPH % 35.1 % (9.0-44.0); LYMPHOCYTE # 1.8 TH/MM3 (1.0-4.8); MEAN CELL VOLUME 91.6 FL (80.0-100.0); MEAN CORPUSCULAR HEMOGLOBIN 30.3 PG (27.0-34.0); MEAN CORPUSCULAR HGB CONC 33.1 % (32.0-36.0); MONO % 10.1 % (0.0-8.0); PLATELET COUNT 379 TH/MM3 (150-450); RED BLOOD COUNT 3.71 MIL/MM3 (4.00-5.30); RED CELL DISTRIBUTION WIDTH 15.5 % (11.6-17.2); WHITE BLOOD COUNT 5.1 TH/MM3 (4.0-11.0)
[2016-06-13 10:28] LABS: PROTHROMBIN TIME - PATIENT 10.5 SEC (9.8-11.6)
[2016-06-13 10:51] LABS: BICARBONATE 28.3 MEQ/L (21.0-32.0); POTASSIUM 3.9 MEQ/L (3.5-5.1)
--- NOTE | 2016-06-13 11:10 | RADRPT ---
EXAM DATE/TIME: 06/13/2016 10:57 [facility] COMPARISON: No previous studies available for comparison. INDICATIONS : Evaluate for penumonia, pneumothorax, or communicable disease. Pre op for left total hip replacement. MEDICAL HISTORY : Gastroesophageal reflux disease. Osteoarthritis. Hiatal hernia. SURGICAL HISTORY : Tonsillectomy. Cataract. Left shoulder replacement. Right bunionectomy. ENCOUNTER: Initial ACUITY: 1 day PAIN SCORE: LOCATION: chest FINDINGS: PA and lateral views of the chest demonstrate the lungs to be symmetrically aerated without evidence of mass, infiltrate or effusion. The cardiomediastinal contours are unremarkable. Osseous structure s are intact. Mild scarring in the lingula and right middle lobe. Left shoulder hemiarthroplasty CONCLUSION: Normal examination. Large hiatal hernia. James Aranda MD on June 13, 2016 at 11:08 Board Certified Radiologist. This report was verified electronically.
[2016-06-13 11:56] LABS: BLOOD, URINE NEG (NEG); COMMENT (UR) CATH-CULT NOT IND; CULTURE IF INDICATED CATH CULTURE NOT IND; GLUCOSE,URINE NEG (NEG); KETONE, URINE NEG (NEG); MUCUS URINE FEW /lpf (OCC); NITRITE,URINE NEG (NEG); SQUAMOUS EPITHELIAL CELL URINE <1 /hpf (0-5); URINE COLOR YELLOW (YELLW/STRAW)
--- NOTE | 2016-06-14 11:40 | EKG ---
Date Performed: 06/13/2016 Time Performed: 10:09:12 PTAGE: 75 years EKG: Sinus rhythm RIGHT BUNDLE BRANCH BLOCK LEFT ANTERIOR FASCICULAR BLOCK ABNORMAL ECG PREVIOUS TRACING : 02/05/2007 11.19 DOCTOR: James Domínguez Interpretating Date/Time 06/14/2016 11:39:17
== END ==
LOC: CPRE 09:29
PROVIDERS: ATTEND Orthopaedic Surgery
DX: Z01.810 Encounter for preprocedural cardiovascular examination (principal); Z01.811 Encounter for preprocedural respiratory examination; Z01.812 Encounter for preprocedural laboratory examination; M16.12 Unilateral primary osteoarthritis, left hip
CPT/HCPCS: 36415; 71020; 80048; 81001; 85025; 85610; 93005